=== PATIENT | male | born 1985 | race Two or more races ===

== ENCOUNTER 2024-07-02 14:00 | Outpatient (RCR) | payer MEDICAID, SELFPAY ==
--- NOTE | 2024-06-17 12:21 | PT.ODAYNRPT ---
PT Outpatient Daily Note OP Daily Note Outpatient Physical Therapy Treatment Date: 06/17/24 Visit Reasons: Left knee Osteoarthritis Subjective: L lateral knee still hurts but the inside of the thighs are less tight. Objective: See F/S for therex Assessment: Pt continues to ambulate with lateral trunk sway B and L lateral knee pain Plan: Continue per POC Length of Time (minutes) of Treatment: 30 Minutes Procedure Charges Therapeutic Exercise 30 minutes: Yes
--- NOTE | 2024-06-28 10:01 | PT.ODAYNRPT ---
PT Outpatient Daily Note OP Daily Note Outpatient Physical Therapy Treatment Date: 06/28/24 Visit Reasons: Left knee Osteoarthritis Subjective: Pt reports L knee is doing better. Objective: Please see flow sheet for ther ex list. 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 Plan: Continue with POC. Length of Time (minutes) of Treatment: 30 Minutes Procedure Charges Therapeutic Exercise 30 minutes: Yes
--- NOTE | 2024-07-02 14:23 | PT.ODAYNRPT ---
PT Outpatient Daily Note OP Daily Note Outpatient Physical Therapy Treatment Date: 07/02/24 Visit Reasons: Left knee Osteoarthritis Subjective: Pt reports knee is doing better but still has difficult bending and squatting. Objective: Please see flow sheet for ther ex list. Assessment: Pt instructed on lateral step down, pt requires WEIGHT LOSS PHYSICIAN to descend. Plan: Continue with pOC. Length of Time (minutes) of Treatment: 30 Minutes Procedure Charges Therapeutic Exercise 30 minutes: Yes
== END 2024-07-13 23:59 | disposition home or self-care (01) ==
LOC: CPTX 14:00
PROVIDERS: PCP Orthopaedic Surgery; Referring Provider Orthopaedic Surgery; Visit Provider Orthopaedic Surgery
DX: M25.562 Pain in left knee (principal); M23.92 Unspecified internal derangement of left knee; M17.12 Unilateral primary osteoarthritis, left knee; S83.242D Other tear of medial meniscus, current injury, left knee, subsequent encounter; X58.XXXD Exposure to other specified factors, subsequent encounter
CPT/HCPCS: 97110

== ENCOUNTER 2024-07-29 10:30 | Outpatient (RCR) | payer MEDICAID, SELFPAY ==
--- NOTE | 2024-07-16 12:14 | PT.ODAYNRPT ---
PT Outpatient Daily Note OP Daily Note Outpatient Physical Therapy Treatment Date: 07/16/24 Visit Reasons: left knee osteoarthritis Subjective: L lateral knee still hurts but the inside of the thighs are less tight. Objective: See F/S for therex Assessment: Pt continues to ambulate with lateral trunk sway B and L lateral knee pain Plan: Continue per POC Length of Time (minutes) of Treatment: 30 Minutes Procedure Charges Therapeutic Exercise 30 minutes: Yes
--- NOTE | 2024-07-22 13:20 | PT.ODAYNRPT ---
PT Outpatient Daily Note OP Daily Note Outpatient Physical Therapy Treatment Date: 07/22/24 Visit Reasons: left knee osteoarthritis Subjective: L lateral knee still hurts but the inside of the thighs are less tight. Objective: See F/S for therex Assessment: Pt continues to ambulate with lateral trunk sway B and L lateral knee pain. Plan: Continue per POC Length of Time (minutes) of Treatment: 30 Minutes Procedure Charges Therapeutic Exercise 30 minutes: Yes
--- NOTE | 2024-07-29 10:59 | PT.ODS1RPT ---
PT OP Progress/Discharge Note Date of Service: 07/29/24 Progress Note/DC Note Progress Note/Discharge Note: DC Note Patient Information Visit Reasons: left knee osteoarthritis Service Continue Service or Discharge: Discharge Discharge Date: 07/29/24 Status Subjective: L lateral knee still mildly hurts but the inside of the thighs are less tight. Objective: L knee ArOM: Flexion: 120 deg Ext: full TTP: min of lateral joint line Strength: Quads: 4+/5 HS: 4+/5 Gait: lateral sway with shortened step length Assessment: Pt has attended 18 visits with good progress with L knee goals. Pt has met goal of improved SLR to lift LE into bed x5 and improved quad and HS strength to 4+/5. Pt has decreased pain in L knee with bending it and squatting but continues to ambulate with lateral trunk sway B and B lateral knee pain. Progress has plateaued with goals. Plan: D/C with HEP Procedure Charges Therapeutic Exercise 30 minutes: Yes
== END 2024-08-13 23:59 | disposition home or self-care (01) ==
LOC: CPTX 10:30
PROVIDERS: PCP Orthopaedic Surgery; Referring Provider Orthopaedic Surgery; Visit Provider Orthopaedic Surgery
DX: M25.562 Pain in left knee (principal); S83.242D Other tear of medial meniscus, current injury, left knee, subsequent encounter; X58.XXXD Exposure to other specified factors, subsequent encounter; M17.12 Unilateral primary osteoarthritis, left knee; M23.92 Unspecified internal derangement of left knee
CPT/HCPCS: 97110

== ENCOUNTER → 2024-08-26 | Outpatient (CLI) | payer MEDICAID, SELFPAY ==
--- NOTE | 2024-08-26 10:49 | XR_ITS ---
Examination: Right femur 2 views Technique one AP lateral right femur 2 views Exam date and time: August 26, 2024 1226 hours INDICATIONS: Right femur pain 6 months. FINDINGS: Advanced avascular necrosis involving right femoral head occupying more than 50% of the articulating surface Fragmentation flattening the femoral head No acute fracture Shaft of the femur intact IMPRESSION: Advanced avascular necrosis right femoral head
== END | disposition home or self-care (01) ==
PROVIDERS: PCP Nurse Practitioner Family; Referring Provider Orthopaedic Surgery; Visit Provider Orthopaedic Surgery
DX: M87.851 Other osteonecrosis, right femur (principal)
CPT/HCPCS: 73552

== ENCOUNTER → 2024-11-04 | Outpatient (CLI) | payer MEDICAID, SELFPAY ==
--- NOTE | 2024-11-04 | XR_ITS ---
Examination:Right hip AP, lateral, AP pelvis 3 views Technique: Hip AP lateral, AP pelvis, 3 views Exam date and time:November 04, 2024 1110 hours INDICATIONS: Right hip pain years getting worse FINDINGS: Prominent osteopenia Bilateral moderate to advanced hip osteoarthritis Bilateral advanced avascular necrosis femoral heads No fracture IMPRESSION: Bilateral moderate to advanced hip osteoarthritis Bilateral advanced avascular necrosis femoral heads.
--- NOTE | 2024-11-04 | XR_ITS ---
Examination: Knee, right , 3 views Technique: Knee AP, lateral, oblique 3 views Date and time of exam: November 04, 2024 1109 hours INDICATIONS: Right knee pain several years getting worse FINDINGS: No fracture or dislocation Mild narrowing medial joint space Mild to moderate osteoarthritis patellofemoral joint Small knee effusion IMPRESSION: Mild narrowing medial joint space Mild to moderate osteoarthritis patellofemoral joint
== END | disposition home or self-care (01) ==
LOC: CDIM 10:41
PROVIDERS: Referring Provider Registered Nurse Community Health; Visit Provider Registered Nurse Community Health
DX: M17.11 Unilateral primary osteoarthritis, right knee (principal); M25.861 Other specified joint disorders, right knee; M16.11 Unilateral primary osteoarthritis, right hip; M87.851 Other osteonecrosis, right femur
CPT/HCPCS: 73502; 73562

== ENCOUNTER 2025-01-30 13:13 | Outpatient (AMB) | payer MEDICAID, SELFPAY ==
--- NOTE | 2025-01-30 13:34 | ORTHONT_ITS ---
Vital signs 01/30/25 13:58 Height 1.73 m Height Method Stated Weight 103.051 kg Weight Measurement Method Standing Scale BMI 34.5 BP 139/90 H Blood Pressure Source Automatic Cuff Blood Pressure Location Right Upper Arm Position Sitting Respiration 18 Pulse 118 H Pulse Source Monitor Temp 97.1 F Temp Source Temporal Artery Scan Pulse Oximetry (%) 95 Oxygen Delivery Method Room Air Med/Allergies Allergies & Medications Allergies No Known Allergies Allergy (Verified 01/30/25 13:58) Medication Reconciliation No Known Home Medications 01/30/25 [History Confirmed 01/30/25] Exam Exam Patient is in no acute distress and is cooperative with the examination today. Breathing is nonlabored. In no respiratory distress. Patient has no paraspinal tenderness. Spinal deformity cannot be appreciated. The gait of the patient is nonantalgic Bilateral extremities were evaluated and demonstrates sensation intact to light touch. Palpable pedal pulses are present. No significant edema is present. Bilateral knees were examined and the patient has full strength and range of motion.. The left hip was examined. Patient was able to flex to 90 degrees, adduct to 30 degrees, abduct to 40 degrees, internally rotate to 20 degrees, and externally rotate to 20 degrees. Patient has a negative logroll. Stinchfield is Positive. The patient is nontender diffusely to touch. The right hip was examined. Patient was able to flex to 90 degrees, adduct to 30 degrees, abduct to 40 degrees, internally rotate to 10 degrees, and externally rotate to 20 degrees. Patient has a Positive logroll. Bilateral hip films demonstrates significant knees previously of both femoral heads. There is marked sclerosis and erosive changes of the femoral head consistent with avascular necrosis. 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 We discussed different treatment options with patient including continued anti- inflammatories, home exercises, physical therapy. He has significant collapse of the femoral consider total hip replacement as a reasonable option. We discussed that he is on the younger side for total hip replacement and is possible that he will outlive it. He would do this through an anterior approach The nature and purpose of the total hip replacement, alternative method(s) of treatment, the material risks involved, and the possibility of complications were fully explained to the patient. The patient does NOT have any of the following contraindications to JOSH: - Active infection of the hip joint, OR - Active systemic bacteremia, OR - Active skin infection or open wound at surgical site, OR - Neuropathic arthritis, OR - Severe, rapidly progressive neurological disease, OR - Severe medical condition that makes risks of the surgery outweigh the potential benefit The patient was told the most common risks and complications associated with a total hip replacement include, but are not limited to: blood clots in the leg, fatal pulmonary embolism, dislocation of the prosthesis, intraoperative and postoperative fractures of the femur or acetabulum, infection, failure of the prosthesis or grafting materials, complications from anesthesia, reactions to blood transfusions, postoperative leg length inequality, instability of the hip replacement, nerve damage or injury, vascular injury, delayed wound healing, infection, other injury or even . In addition, there are risks associated with anesthesia given during this operation. Also, the patient was told that after undergoing a total hip replacement there may still be persistent pain or disability. The patient was informed that the success of this operation in part depends upon the mechanical devices which are going to be implanted and that these devices can fail or malfunction, and may need to be repaired or replaced and there are no guarantees as to the longevity of this device or its parts and that it or its parts could fail prematurely. The patient was also notified that during the course of surgery, there may be a need to use bone graft from donors, and that any bone graft used will be carefully screened for communicable diseases, including AIDS, hepatitis, Tom-Creutzfeldt, or other diseases, but despite the screening procedures, there is a small chance that they could contract one of these diseases. Finally, the patient was asked to follow completely and fully with all advice and recommended treatments, and that recovery and ultimate outcome are affected by their compliance with recommended treatment. We discussed the risks, benefits and treatment alternatives, and the patient is interested in proceeding with surgery. We will try to set this up as expeditiously as possible. Office Procedures GNS Level of Care Nursing/Assessment Patient Status: Established Patient Nursing Assessment/Reassesment: Medication Reconciliation, Update PMH in EMR and Vital Signs Coordination of Care: Complex Care and Chronic Disease 1-5, Education Complex Pt/Fam, Consent,records obtained, informed consent, 2-3 Insurance Autorizations needed, Lab and Imaging orders, Results/Orders obtained and Staff clarify orders Special Needs: Language special needs Established Patient Charge Established Patient Point Assignment: 130 Established Patient Point Charge: EP Level 4 (120-155) MA Intake Visit Data Collection New Patient or Established: Established Patient (seen at [facility] within 3 years) Reason for Visit:: HIP PAIN Seen by Clinical Staff ONLY (RN/MA): No Verbal consent obtained for Telemed visit?: No International Controller Required: Yes PCP or OBGYN visit in last 3 months: Yes Hx Now: No Do You Feel Safe at Home: Yes Authorities Contacted: N/A Questionairres Past Medical History Past Medical History Have you ever been diagnosed with any of the following: Cardiology Problems Congestive Heart Failure: No Respiratory Problems Chronic Obstructive Pulmonary Disease (COPD): No Asthma: No Genital/Urinary Problems Renal Disease: No Endocrine Problems Diabetes Mellitus Type 1: No Diabetes Mellitus Type 2: No Blood Problems Sickle Cell Disease: No Subjective Visit Visit for: new patient and hip Immunization / Flu Flu Vaccine in the Last 12 Months: No Flu Vaccine Exclusion Criteria: No Exclusion Criteria History of Present Illness Chief complaint: right hip pain Patient is a 39yo male with R>L hip avascular necrosis and right hip pain. He does not drink alcohol. He reports he has been having right hip pain for the last 1 year and it has progressed. The pain is affecting his quality life and happiness. He has tried anti-inflammatories previously. He did have a hospitalization for COVID where he was on intravenous steroids for quite a bit of time. This is the only predisposing fracture to avascular necrosis that I can get my history. He does have avascular necrosis of both hips Personal History Occupation: [employer] PMH: BMI and other (specify) (COVID, PNEUMONIA) BMI Counceling provided: Yes Pain Pain level (0-10): 6 Pain duration: ALL DAY Pain location: groin Pain quality: sharp, dull and aching Pain timing: night, increases with activity and stairs Associated signs & symptoms: numbness and stiffness Ambulatory data Ambulatory device: none Treatments Improvement with previous injections: No Improvement with PT: No Improvement with NSAIDS: no Review of Systems Review of Systems: All systems negative unless otherwise noted in HPI.
[2025-01-30 13:58] VITALS: BP 139/90; PULSE 118; RESP 18; TEMP 36.2; O2SAT 95; BMI 34.5
== END 2025-01-30 13:41 | disposition home or self-care (01) ==
LOC: HODSRG 13:13
PROVIDERS: Supervising Provider Orthopaedic Surgery Adult Reconstructive Orthopaedic Surgery; Visit Provider Orthopaedic Surgery Adult Reconstructive Orthopaedic Surgery
DX: M87.88 Other osteonecrosis, other site (principal); M25.551 Pain in right hip; Z86.16 Personal history of COVID-19
CPT/HCPCS: 99214; G0463

== ENCOUNTER 2025-03-04 11:00 | Outpatient (AMB) | payer MEDICAID, SELFPAY ==
[2025-03-04 11:21] VITALS: BP 137/95; PULSE 84; RESP 19; TEMP 36.3; O2SAT 94; BMI 33.4
--- NOTE | 2025-03-04 11:21 | PD.ORTHCLVIS ---
Vital signs 03/04/25 11:21 Height 1.73 m Height Method Measured Weight 100.045 kg Weight Measurement Method Standing Scale BMI 33.4 BP 137/95 H Blood Pressure Source Automatic Cuff Blood Pressure Location Left Upper Arm Position Sitting Respiration 19 Pulse 84 Pulse Source Monitor Temp 97.4 F Temp Source Temporal Artery Scan Pulse Oximetry (%) 94 L Oxygen Delivery Method Room Air Med/Allergies Allergies & Medications Allergies No Known Allergies Allergy (Verified 03/04/25 11:23) Medication Reconciliation No Known Home Medications 01/30/25 [History Confirmed 03/04/25] Exam Exam Patient is in no acute distress and is cooperative with the examination today. Breathing is nonlabored. In no respiratory distress. Patient has no paraspinal tenderness. Spinal deformity cannot be appreciated. The gait of the patient is nonantalgic Bilateral extremities were evaluated and demonstrates sensation intact to light touch. Palpable pedal pulses are present. No significant edema is present. Bilateral knees were examined and the patient has full strength and range of motion.. The left hip was examined. Patient was able to flex to 90 degrees, adduct to 30 degrees, abduct to 40 degrees, internally rotate to 20 degrees, and externally rotate to 20 degrees. Patient has a negative logroll. Stinchfield is Positive. The patient is nontender diffusely to touch. The right hip was examined. Patient was able to flex to 90 degrees, adduct to 30 degrees, abduct to 40 degrees, internally rotate to 10 degrees, and externally rotate to 20 degrees. Patient has a Positive logroll. Bilateral hip films demonstrates marked sclerosis and erosive changes of the bilateral femoral headd consistent with avascular necrosis. 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 We discussed different treatment options with patient including continued anti-inflammatories, home exercises, physical therapy. He has significant collapse of the femoral consider total hip replacement as a reasonable option. We discussed that he is on the younger side for total hip replacement and is possible that he will outlive it. The nature and purpose of the total hip replacement, alternative method(s) of treatment, the material risks involved, and the possibility of complications were fully explained to the patient. The patient does NOT have any of the following contraindications to JOSH: - Active infection of the hip joint, OR - Active systemic bacteremia, OR - Active skin infection or open wound at surgical site, OR - Neuropathic arthritis, OR - Severe, rapidly progressive neurological disease, OR - Severe medical condition that makes risks of the surgery outweigh the potential benefit The patient was told the most common risks and complications associated with a total hip replacement include, but are not limited to: blood clots in the leg, fatal pulmonary embolism, dislocation of the prosthesis, intraoperative and postoperative fractures of the femur or acetabulum, infection, failure of the prosthesis or grafting materials, complications from anesthesia, reactions to blood transfusions, postoperative leg length inequality, instability of the hip replacement, nerve damage or injury, vascular injury, delayed wound healing, infection, other injury or even . In addition, there are risks associated with anesthesia given during this operation. Also, the patient was told that after undergoing a total hip replacement there may still be persistent pain or disability. The patient was informed that the success of this operation in part depends upon the mechanical devices which are going to be implanted and that these devices can fail or malfunction, and may need to be repaired or replaced and there are no guarantees as to the longevity of this device or its parts and that it or its parts could fail prematurely. The patient was also notified that during the course of surgery, there may be a need to use bone graft from donors, and that any bone graft used will be carefully screened for communicable diseases, including AIDS, hepatitis, Tom-Creutzfeldt, or other diseases, but despite the screening procedures, there is a small chance that they could contract one of these diseases. Finally, the patient was asked to follow completely and fully with all advice and recommended treatments, and that recovery and ultimate outcome are affected by their compliance with recommended treatment. We discussed the risks, benefits and treatment alternatives, and the patient is interested in proceeding with surgery. We will try to set this up as expeditiously as possible. Office Procedures GNS Level of Care Nursing/Assessment Patient Status: Established Patient Nursing Assessment/Reassesment: Medication Reconciliation, Update PMH in EMR and Vital Signs Coordination of Care: Complex Care and Chronic Disease 1-5, Education Complex Pt/Fam, Consent,records obtained, informed consent, Results/Orders obtained and Staff clarify orders Special Needs: Language special needs Established Patient Charge Established Patient Point Assignment: 95 Established Patient Point Charge: EP Level 3 (80-115) JONAS Intake Visit Data Collection New Patient or Established: Established Patient (seen at [facility] within 3 years) Reason for Visit:: PRE-OP RIGHT JOSH Seen by Clinical Staff ONLY (RN/MA): No Odd Job Worker Required: No PCP or OBGYN visit in last 3 months: Yes Hx Now: No Do You Feel Safe at Home: Yes Authorities Contacted: N/A Questionairres Past Medical History Past Medical History Have you ever been diagnosed with any of the following: Cardiology Problems Congestive Heart Failure: No Respiratory Problems Chronic Obstructive Pulmonary Disease (COPD): No Asthma: No Genital/Urinary Problems Renal Disease: No Endocrine Problems Diabetes Mellitus Type 1: No Diabetes Mellitus Type 2: No Blood Problems Sickle Cell Disease: No Subjective Visit Visit for: new patient, follow up visit, hip and knee Immunization / Flu Flu Vaccine in the Last 12 Months: No Flu Vaccine Exclusion Criteria: No Exclusion Criteria History of Present Illness Chief complaint: PRE OP RIGHT JOSH Patient is a 39yo male with R>L hip avascular necrosis and right hip pain. He does not drink alcohol. He reports he has been having right hip pain for the last 1 year and it has progressed. The pain is affecting his quality life and happiness. He has tried anti-inflammatories previously. He did have a hospitalization for COVID where he was on intravenous steroids for quite a bit of time. This is the only predisposing fracture to avascular necrosis that I can get my history. He does have avascular necrosis of both hips Personal History Occupation: [employer] PMH: BMI and other (specify) (COVID, PNEUMONIA) BMI Counceling provided: Yes Pain Pain level (0-10): 8 Pain duration: ALL DAY Pain location: groin Pain quality: sharp, dull and aching Pain timing: night, increases with activity and stairs Associated signs & symptoms: numbness and stiffness Ambulatory data Ambulatory device: walker (PT ALREADY HAS WALKER AT HOME) and none Treatments Improvement with previous injections: No Improvement with PT: No Improvement with NSAIDS: no Review of Systems Review of Systems: All systems negative unless otherwise noted in HPI.
== END 2025-03-04 11:34 | disposition home or self-care (01) ==
LOC: HODSRG 11:00
PROVIDERS: Supervising Provider Orthopaedic Surgery Adult Reconstructive Orthopaedic Surgery; Visit Provider Orthopaedic Surgery Adult Reconstructive Orthopaedic Surgery
DX: M87.88 Other osteonecrosis, other site (principal); M25.551 Pain in right hip; Z86.16 Personal history of COVID-19
CPT/HCPCS: 99213; G0463

== ENCOUNTER → 2025-03-10 | Outpatient (CLI) | payer MEDICAID, SELFPAY ==
--- NOTE | 2025-03-10 12:00 | XR_ITS ---
Examination: CT bilateral lower extremities, without contrast. 2-D sagittal reconstructions. 2-D coronal reconstructions. 3-D reconstructions. Date and time of exam:March 10, 2025, 12:15 PM INDICATIONS: Diagnosis hepatic septal necrosis right femur, right hip pain 2 years CTDI: vol (mGy):10.8 DLP: (mGycm):724 Technique: Multiple 1.25 mm axial sections of the bilateral lower extremities without intravenous contrast have been obtained. 2-D sagittal and coronal reconstructions have been obtained. 3-D reconstructions have been obtained. Low dose protocols were performed. One or more of the following dose reduction techniques were used; automated exposure control, adjustment of the mA and/or KV according to patient size, use of iterative reconstruction technique. Findings: Severe osteopenia Advanced bilateral hip osteoarthritis Advanced right hip avascular necrosis Extensive subarticular cyst formation left femoral head Mild narrowing medial joint spaces knees No fractures or dislocations IMPRESSION: Advanced bilateral hip osteoarthritis Advanced right hip avascular necrosis
== END | disposition home or self-care (01) ==
LOC: CCTX 11:54
PROVIDERS: Referring Provider Orthopaedic Surgery Adult Reconstructive Orthopaedic Surgery; Visit Provider Orthopaedic Surgery Adult Reconstructive Orthopaedic Surgery
DX: M16.0 Bilateral primary osteoarthritis of hip (principal); M87.88 Other osteonecrosis, other site
CPT/HCPCS: 72192; 73700

== ENCOUNTER → 2025-03-19 | Day surgery (SDC) | payer MEDICAID, SELFPAY ==
[2025-03-14 06:59] VITALS: BMI 33.1
[2025-03-14 08:59] LABS: Basophils # (Auto) 0.0 Thou/mm3 (0.0-0.2); Basophils % (Auto) 1 % (0-2.5); Eosinophils # (Auto) 0.2 Thou/mm3 (0.0-0.5); Eosinophils % (Auto) 3 % (0-10); Hematocrit 44.6 % (41.0-53.0); Hemoglobin 14.2 g/dL (13.5-16.0); Immature Granulocytes Auto 0.02 Thou/mm3 (0.00-0.00); Lymphocytes # (Auto) 2.3 Thou/mm3 (1.0-4.8); Lymphocytes % (Auto) 33 % (10-50); Mean Corpuscular HGB Conc 31.8 g/dl (31.0-37.0); Mean Corpuscular Hemoglobin 27.7 pg (25.0-35.0); Mean Corpuscular Volume 87 fL (80-100); Monocytes # (Auto) 0.8 Thou/mm3 (0.0-0.8); Monocytes % (Auto) 11 % (0-12); Neutrophils # (Auto) 3.6 Thou/mm3 (1.8-7.7); Neutrophils % (Auto) 52 % (37-80); Nucleated Red Blood Cell # 0.00 Thou/mm3 (0.00-0.00); Nucleated Red Blood Cell % 0 /100 WBC (0); Platelet Count 321 Thou/mm3 (140-440); RDW Standard Deviation 46.5 fL (35.1-43.9); Red Blood Count 5.12 Miln/mm3 (4.50-5.90); White Blood Count 7.0 Thou/mm3 (3.8-10.6)
[2025-03-14 09:03] LABS: Alanine Aminotransferase 67 U/L (10-49); Albumin, Serum 4.6 gm/dL (3.5-5.0); Albumin/Globulin Ratio 1.8 (1.2-2.2); Alkaline Phosphatase 76 U/L (46-116); Anion Gap 10 (7-16); Aspartate Amino Transferase 23 U/L (0-34); BUN/Creatinine Ratio 18 Ratio (12-20); Bilirubin,Total 0.4 mg/dL (0.3-1.2); Blood Urea Nitrogen 16 mg/dL (9-23); Calcium 9.0 mg/dL (8.3-10.6); Calcium (Corrected) 9.0 mg/dL (8.5-10.1); Carbon Dioxide 27.5 mMol/L (20.0-31.0); Chloride 107 mMol/L (98-107); Creatinine (Component) 0.9 mg/dL (0.6-1.3); Estimated Creatinine Clearance 123.2 mL/min (>60); Globulin 2.5 gm/dL (2.3-3.5); Glucose 85 mg/dL (74-106); Osmolality,Calculated 287 (275-295); Potassium 4.3 mMol/L (3.4-5.1); Sodium 144 mMol/L (136-145); Total Protein 7.1 gm/dL (5.7-8.2); eGFR > 60 See Note
[2025-03-14 09:07] LABS: INR 1.0 (0.9-1.3); Partial Thromboplastin Time 27.1 Seconds (22.0-36.0); Prothrombin Time 11.3 Seconds (9.0-12.2)
[2025-03-19] MEDS: RINGERS LACTATED 1000 ML 1,000 ML 20 ML IV (06:50)
[2025-03-19] MEDS: ACETAMINOPHEN 325 MG TABLET 650 MG PO (06:51)
[2025-03-19] MEDS: MELOXICAM 7.5 MG TABLET PO (06:51)
[2025-03-19] MEDS: PREGABALIN 75 MG CAPSULE PO (06:51)
[2025-03-19 06:55] VITALS: BP 141/74; PULSE 77; RESP 17; TEMP 37; O2SAT 96; BMI 32.3
--- NOTE | 2025-03-19 07:15 | CHAP ---
Visited briefly with patient giving encouragement and prayer.
== END | disposition home or self-care (01) ==
LOC: S2EX 06:12
PROVIDERS: Anesthesiology; PCP Family Medicine; Referring Provider Orthopaedic Surgery Adult Reconstructive Orthopaedic Surgery; Visit Provider Orthopaedic Surgery Adult Reconstructive Orthopaedic Surgery
PROC: (CPT 27130; principal; 2025-03-19 17:00)
DX: M87.051 Idiopathic aseptic necrosis of right femur (principal); M87.052 Idiopathic aseptic necrosis of left femur; Z53.09 Procedure and treatment not carried out because of other contraindication
CPT/HCPCS: 36415; 80053; 85025; 85610; 85730; J2250; J2704; J3010; J3490; J7120; A9270

== ENCOUNTER 2025-04-03 11:05 | Outpatient (AMB) | payer MEDICAID, SELFPAY ==
--- NOTE | 2025-04-03 11:17 | ORTHONT_ITS ---
Vital signs 04/03/25 11:18 Height 1.73 m Height Method Measured Weight 97.097 kg Weight Measurement Method Standing Scale BMI 32.4 BP 130/88 H Blood Pressure Source Automatic Cuff Blood Pressure Location Left Upper Arm Position Sitting Respiration 18 Pulse 97 Pulse Source Monitor Temp 96.6 F L Temp Source Temporal Artery Scan Pulse Oximetry (%) 94 L Oxygen Delivery Method Room Air Med/Allergies Allergies & Medications Allergies No Known Allergies Allergy (Verified 04/03/25 11:19) Medication Reconciliation metformin 500 mg tablet 500 mg PO BID 03/14/25 [History Confirmed 04/03/25] Exam Exam Patient is in no acute distress and is cooperative with the examination today. Breathing is nonlabored. In no respiratory distress. Patient has no paraspinal tenderness. Spinal deformity cannot be appreciated. The gait of the patient is nonantalgic Bilateral extremities were evaluated and demonstrates sensation intact to light touch. Palpable pedal pulses are present. No significant edema is present. Bilateral knees were examined and the patient has full strength and range of motion.. The left hip was examined. Patient was able to flex to 90 degrees, adduct to 30 degrees, abduct to 40 degrees, internally rotate to 20 degrees, and externally rotate to 20 degrees. Patient has a negative logroll. Stinchfield is Positive. The patient is nontender diffusely to touch. The right hip was examined. Patient was able to flex to 90 degrees, adduct to 30 degrees, abduct to 40 degrees, internally rotate to 10 degrees, and externally rotate to 20 degrees. Patient has a Positive logroll. Skin is clean dry and intact Bilateral hip films demonstrates marked sclerosis and erosive changes of the bilateral femoral headd consistent with avascular necrosis. 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 We discussed different treatment options with patient including continued anti- inflammatories, home exercises, physical therapy. He has significant collapse of the femoral consider total hip replacement as a reasonable option. We discussed that he is on the younger side for total hip replacement and is possible that he will outlive it. The nature and purpose of the total hip replacement, alternative method(s) of treatment, the material risks involved, and the possibility of complications were fully explained to the patient. The patient does NOT have any of the following contraindications to JOSH: - Active infection of the hip joint, OR - Active systemic bacteremia, OR - Active skin infection or open wound at surgical site, OR - Neuropathic arthritis, OR - Severe, rapidly progressive neurological disease, OR - Severe medical condition that makes risks of the surgery outweigh the potential benefit The patient was told the most common risks and complications associated with a total hip replacement include, but are not limited to: blood clots in the leg, fatal pulmonary embolism, dislocation of the prosthesis, intraoperative and postoperative fractures of the femur or acetabulum, infection, failure of the prosthesis or grafting materials, complications from anesthesia, reactions to blood transfusions, postoperative leg length inequality, instability of the hip replacement, nerve damage or injury, vascular injury, delayed wound healing, infection, other injury or even . In addition, there are risks associated with anesthesia given during this operation. Also, the patient was told that after undergoing a total hip replacement there may still be persistent pain or disability. The patient was informed that the success of this operation in part depends upon the mechanical devices which are going to be implanted and that these devices can fail or malfunction, and may need to be repaired or replaced and there are no guarantees as to the longevity of this device or its parts and that it or its parts could fail prematurely. The patient was also notified that during the course of surgery, there may be a need to use bone graft from donors, and that any bone graft used will be carefully screened for communicable diseases, including AIDS, hepatitis, Tom-Creutzfeldt, or other diseases, but despite the screening procedures, there is a small chance that they could contract one of these diseases. Finally, the patient was asked to follow completely and fully with all advice and recommended treatments, and that recovery and ultimate outcome are affected by their compliance with recommended treatment. We discussed the risks, benefits and treatment alternatives, and the patient is interested in proceeding with surgery. We will try to set this up as expeditiously as possible. Office Procedures GNS Level of Care Nursing/Assessment Patient Status: Established Patient Nursing Assessment/Reassesment: Medication Reconciliation, Orthostatic Vitals, Update PMH in EMR and Vital Signs Coordination of Care: Complex Care and Chronic Disease 1-5, Education Complex Pt/Fam, Consent,records obtained, informed consent, Lab and Imaging orders, Results/Orders obtained and Staff clarify orders Special Needs: Language special needs Established Patient Charge Established Patient Point Assignment: 120 Established Patient Point Charge: EP Level 4 (120-155) MA Intake Visit Data Collection New Patient or Established: Established Patient (seen at [facility] within 3 years) Reason for Visit:: F/U RING WORM Seen by Clinical Staff ONLY (RN/MA): No Psychological Examiner Required: Yes PCP or OBGYN visit in last 3 months: Yes Hx Now: No Do You Feel Safe at Home: Yes Authorities Contacted: N/A Questionairres Past Medical History Past Medical History Have you ever been diagnosed with any of the following: Neurological Problems Seizures: No Cardiology Problems Congestive Heart Failure: No Respiratory Problems Chronic Obstructive Pulmonary Disease (COPD): No Asthma: No Pneumonia: Yes (Covid) Stomache/Intestinal Problems Hepatitis: No Obesity: Yes Genital/Urinary Problems Renal Disease: No Musculoskeletal Problems Arthritis: No Head,Eye,Nose,Throat Problems Glaucoma: Yes (right) Endocrine Problems Diabetes Mellitus Type 1: No Diabetes Mellitus Type 2: No Blood Problems Sickle Cell Disease: No Other Problems Hospitalization: Yes (Covid, surgery) Shingles: No Blood Transfusions: No Blood Transfusion Reaction: No Anesthesia Reactions: No Chicken Pox: Yes Measles: Yes Cancer: No Subjective Visit Visit for: follow up visit and hip Immunization / Flu Flu Vaccine in the Last 12 Months: No Flu Vaccine Exclusion Criteria: No Exclusion Criteria History of Present Illness Chief complaint: F/U RING WORM Patient is a 39yo male with R>L hip avascular necrosis and right hip pain. He does not drink alcohol. He reports he has been having right hip pain for the last 1 year and it has progressed. The pain is affecting his quality life and h appiness. He has tried anti-inflammatories previously. He did have a hospitalization for COVID where he was on intravenous steroids for quite a bit of time. This is the only predisposing fracture to avascular necrosis that I can get my history. He does have avascular necrosis of both hips His prior surgery was canceled for a week. This is resolved and I did inspect both legs and there is no erythema or lesions noted Personal History Occupation: [employer] PMH: BMI and other (specify) (COVID, PNEUMONIA) BMI Counceling provided: Yes Pain Pain level (0-10): 8 Pain duration: ALL DAY Pain location: groin Pain quality: sharp, dull and aching Pain timing: night, increases with activity and stairs Associated signs & symptoms: numbness and stiffness Ambulatory data Ambulatory device: none Treatments Improvement with previous injections: No Improvement with PT: No Improvement with NSAIDS: no Review of Systems Review of Systems: All systems negative unless otherwise noted in HPI.
[2025-04-03 11:18] VITALS: BP 130/88; PULSE 97; RESP 18; TEMP 35.9; O2SAT 94; BMI 32.4
== END 2025-04-03 11:29 | disposition home or self-care (01) ==
PROVIDERS: Supervising Provider Orthopaedic Surgery Adult Reconstructive Orthopaedic Surgery; Visit Provider Orthopaedic Surgery Adult Reconstructive Orthopaedic Surgery
DX: M87.88 Other osteonecrosis, other site (principal); M25.551 Pain in right hip; Z86.16 Personal history of COVID-19; E66.9 Obesity, unspecified; Z71.3 Dietary counseling and surveillance; Z68.32 Body mass index [BMI] 32.0-32.9, adult
CPT/HCPCS: 99214; G0463

== ENCOUNTER 2025-04-23 05:45 | Day surgery (SDC) | payer MEDICAID, SELFPAY ==
[2025-04-22 06:58] VITALS: BMI 34.7
[2025-04-22 08:58] LABS: Basophils # (Auto) 0.0 Thou/mm3 (0.0-0.2); Basophils % (Auto) 0 % (0-2.5); Eosinophils # (Auto) 0.3 Thou/mm3 (0.0-0.5); Eosinophils % (Auto) 3 % (0-10); Hematocrit 45.2 % (41.0-53.0); Hemoglobin 14.6 g/dL (13.5-16.0); Immature Granulocytes Auto 0.02 Thou/mm3 (0.00-0.00); Lymphocytes # (Auto) 1.9 Thou/mm3 (1.0-4.8); Lymphocytes % (Auto) 23 % (10-50); Mean Corpuscular HGB Conc 32.3 g/dl (31.0-37.0); Mean Corpuscular Hemoglobin 28.2 pg (25.0-35.0); Mean Corpuscular Volume 87 fL (80-100); Monocytes # (Auto) 0.8 Thou/mm3 (0.0-0.8); Monocytes % (Auto) 10 % (0-12); Neutrophils # (Auto) 5.3 Thou/mm3 (1.8-7.7); Neutrophils % (Auto) 64 % (37-80); Nucleated Red Blood Cell # 0.00 Thou/mm3 (0.00-0.00); Nucleated Red Blood Cell % 0 /100 WBC (0); Platelet Count 367 Thou/mm3 (140-440); RDW Standard Deviation 45.3 fL (35.1-43.9); Red Blood Count 5.17 Miln/mm3 (4.50-5.90); White Blood Count 8.3 Thou/mm3 (3.8-10.6)
[2025-04-22 09:16] LABS: INR 1.0 (0.9-1.3); Partial Thromboplastin Time 26.8 Seconds (22.0-36.0); Prothrombin Time 11.3 Seconds (9.0-12.2)
[2025-04-22 09:26] LABS: Alanine Aminotransferase 70 U/L (10-49); Albumin, Serum 4.6 gm/dL (3.5-5.0); Albumin/Globulin Ratio 1.8 (1.2-2.2); Alkaline Phosphatase 82 U/L (46-116); Anion Gap 14 (7-16); Aspartate Amino Transferase 29 U/L (0-34); BUN/Creatinine Ratio 12 Ratio (12-20); Bilirubin,Total 0.5 mg/dL (0.3-1.2); Blood Urea Nitrogen 11 mg/dL (9-23); Calcium 9.6 mg/dL (8.3-10.6); Calcium (Corrected) 9.6 mg/dL (8.5-10.1); Carbon Dioxide 25.4 mMol/L (20.0-31.0); Chloride 104 mMol/L (98-107); Creatinine (Component) 0.9 mg/dL (0.6-1.3); Estimated Creatinine Clearance 118.0 mL/min (>60); Globulin 2.6 gm/dL (2.3-3.5); Glucose 91 mg/dL (74-106); Osmolality,Calculated 284 (275-295); Potassium 3.8 mMol/L (3.4-5.1); Sodium 143 mMol/L (136-145); Total Protein 7.2 gm/dL (5.7-8.2); eGFR > 60 See Note
[2025-04-23] VITALS (16 sets, daily range): BP systolic 104–136; BP diastolic 67–88; PULSE 67–82; RESP 13–20; TEMP 36.2–36.8; O2SAT 95–98; BMI 34.7
[2025-04-23] MEDS: ACETAMINOPHEN 325 MG TABLET 650 MG PO (06:57)
[2025-04-23] MEDS: PREGABALIN 75 MG CAPSULE PO (06:57)
[2025-04-23] MEDS: MELOXICAM 7.5 MG TABLET PO (06:58)
[2025-04-23] MEDS: RINGERS LACTATED 1000 ML 1,000 ML 20 ML IV (06:59)
--- NOTE | 2025-04-23 07:24 | XR_ITS ---
Examination: Right hip AP 2 views Fluoroscopy Date and time: April single view thousand 25 0915 hours INDICATIONS: Right hip arthroplasty today. TECHNIQUE AND FINDINGS: 2 AP spot films right hip Total right hip arthroplasty. Satisfactory alignment. Fluoroscopy 13 seconds radiation dose 1.41 milligray IMPRESSION: Total right hip arthroplasty with satisfactory alignment
--- NOTE | 2025-04-23 07:25 | CHAP ---
Gave patient words of comfort and prayer.
--- NOTE | 2025-04-23 10:04 | ESOP_ITS ---
Date of Procedure 04/23/25 Pre Op Diagnosis right hip avascular necrosis Post Op Diagnosis right hip avascular necrosis Procedure right total hip replacement meghan anterior Findings full thickness cartilage loss and subchondral fracture Procedure Description Indications: The patient is a 39 y.o. year-old male with a long standing history of right hip pain and avascular necrosis. After considering the patient's condition and the impact of their hip on the patient's quality of life and activities of daily living, total hip replacement was offered as a reasonable option. Prior to the surgery I discussed the nature of the total hip replacement surgery including alternatives to surgery and the purpose of, and indications for proceeding with surgery. I discussed that this is an elective operation and that the patient should carefully weigh their options before proceeding with surgery. I discussed that this surgery is a shared decision between the patient and the surgeon. Risks and benefits and alternatives of the procedure have been explained to the patient and their family. Anesthesia complications and risks include but are not limited to stroke, heart attack, and . The surgical risks include but are not limited to infection, instability/dislocation, bleeding, nerve and blood vessel injury, deep vein thrombosis, pulmonary embolus, stiffness, pain, scar, need for reoperation, leg length discrepancy, thigh numbness, weakness, and mechanical failure of the implant including loosening, metal complications, metal allergy, wear or breakage. I discussed the expected recovery from surgery and the importance of compliance with all our pre and post-operative recommendations in order to maximize the recovery. The patient understands the risks of loss of life, loss of limb and, loss of function and wishes to proceed. A signed and witnessed consent was obtained and placed in the chart. Procedure in Detail: The patient was identified in the preoperative area. A signed and witness consent was confirmed in the chart. The surgery team confirmed with the patient the operative plan and surgical site. The surgical site was confirmed by the patient and marked by the surgical team. The patient was given the opportunity to ask any further questions and all questions were answered. The patient was brought to the operating room where anesthesia was induced by the anesthesia team without incident. The patient was placed in the supine position on a HANA table with the feet well padded in the boots. All extremities were padded to ensure adequate protection. A timeout was performed prior to the procedure which verified the correct patient, positioning, operation to be performed, operative site, antibiotics, allergies, imaging, and any other concerns. All parties were in agreement. The operative site was cleaned and draped in the usual sterile fashion. A final timeout was performed with all parties in agreement. We first started by making a small incision superior to the ASIS ensuring to be on the table of the pelvis. We ensured that we were 2 fingerbreadths above the ASIS and hip. We placed 3 pins through a small incision and ensured that we were in the table. The pins were driven approximately 3 to 4 cm. The arrays were then placed on the contralateral side to face the camera. A anterior approach to the hip was utilized for the operative side. A 11cm skin incision was made just distal and lateral to the ASIS. This was taken down through skin and subcutaneous tissue using a 10 blade. Bleeding was controlled using electrocautery. The fascia was identified and split in line with the its fibers. The plane medial to the TFL was developed. Next the lateral femoral circumflex vessel was cauterized. The capsule over the femoral neck was exposed and a T shaped capsulotomy performed. The two leaflets were tagged. A femoral neck osteotomy was then performed and the head removed using the marker tool to aid in determining the appropriate neck length. The acetabular bone was then mapped.Acetabular retractors were placed and the cupped was reamed using the robot for alignment. We reamed line to line and good bleeding bone was obtained. We then placed a press fit triathlon cup getting proper version and inclination off of c-arm imaging. There was good press fit. The anterior rim of the cup well covered. One placed and confirmed below the rim of the inner cup followed by the liner which was confirmed fully seated circumferentially. Half of the joint injection was placed inferior and anterior to the acetabulum. Peripheral osteophytes were removed. Next the femur was exposed using the table and femoral elevator for assistance. For this case a capsular release was performed leaving the piriformis and rest of short external rotators intact. The canal was broached up until we obtained excellent axial and rotational stability and the hip was reduced. Fluoro was used to fitness coach limb length, offset, and stem size as well as the calibrations from the robot. Stability was assessed by externally rotating the foot to 90 deg and then extending the hip 30 degrees. There was no subluxation of the femoral head in that position. The hip was dislocated. The stem position and depth was adjusted as needed per the fluoro shot. The neck was planed to the level of the broach using the calcar planar and then the stem removed. The canal was irrigated and the calcar inspected. There was no evidence of fracture and the bone bed was in good condition. The real stem was inserted and then impacted to the prior level of the broach with good solid fit. The calcar was again inspected and in good condition. The real head was impacted onto a clean taper and the hip reduced again. C-arm confirmed reduction and no evidence of complication. The wound was irrigated with dilute betadine followed by saline lavage. Hemostasis was obtained and noted through all layers. The remained of the joint cocktail was injected avoiding posterior by the nerve. We ensured that all the pins were removed from the pelvis including any checkpoints. The capsule was repaired with 0-vlock. The fascia closed with #2 Quill. The subcutaneous tissues closed with 2-0 vlock followed by 3-0 monocryl, dermabond, and prineo The drapes were then taken down and the patient moved to the [facility]. Leg lengths were confirmed to be appropriate and the patient's lower extremities were warm and well perfused with brisk capillary refill and palpable pulses. The patient was then awoken, transferred to the [facility] and taken to the PACU in stable condition. They tolerated the procedure well. The patient's family/caregiviers were made aware of their condition. Final sponge and needle counts were correct x2. Implants: Gianluca trident 56 cup, standard liner, 36+0 head, standard offset 4insignia Anesthesia spinal Implants gianluca Pathology / specimen None Pathology comment: none Estimated Blood Loss 150 Condition Stable Disposition same day Surgeon Wilder Aviles MD Surgical Staff Operation Date: 04/23/25 07:30 Case Staff IMPREGNATOR AND DRIER: Jasmin Gardner RN First Assistant: Marya Evans
--- NOTE | 2025-04-23 10:07 | XR_ITS ---
Examination:Right hip AP, lateral, AP pelvis 3 views Technique: Hip AP lateral, AP pelvis, 3 views Exam date and time:April 23, 2025 1105 hours INDICATIONS: Postop right hip replacement FINDINGS: Total right hip arthroplasty. Satisfactory alignment. 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
--- NOTE | 2025-04-23 10:35 | SUR.PHASEI ---
pt received from OR in recovery bay 1. pt awake and alert, breathing unlabored on oxymask 8l. v/s stable. pt dressing to bilateral hips cdi. report received from Juice DAVEY and Jessica MELÉNDEZ.
--- NOTE | 2025-04-23 12:00 | SUR.PHASEII ---
Addendum entered by Aimee Banks RN 04/23/25 12:20: dressing to left abdomen also cdi. Original Note: report from nurse ivis. vss. breathing even and unlabored.denies pain and nausea. dressing remains cdi to right hip. at bedside.
--- NOTE | 2025-04-23 12:32 | SUR.PHASEII ---
report to nurse langston. pt remains in stable condition. dressings remain intact. vss. breathing even and unlabored. tolerating po fluids.
--- NOTE | 2025-04-23 14:00 | SUR.PHASEII ---
pt able to tolerate oral fluids without difficulty swallowing or nausea/vomiting.
[2025-04-23] MEDS: ONDANSETRON INJ 2 MG/ML INJ 2 ML 4 MG IVP (14:07)
--- NOTE | 2025-04-23 14:20 | SUR.PHASEII ---
pt awake and alert, breathing unlabored on room air. v/s stable. pt dressing to bilateral hips cdi. pt cleared by physical therapist Camden. pt able to ambulate to pacu bathroom. d/c instructions given with Anastasia in room, all questions answered. pt d/c via wheelchair with steady gait.
== END 2025-04-23 14:20 | disposition home or self-care (01) ==
PROVIDERS: Anesthesiology; PCP Family Medicine; Referring Provider Orthopaedic Surgery Adult Reconstructive Orthopaedic Surgery; Visit Provider Orthopaedic Surgery Adult Reconstructive Orthopaedic Surgery
PROC: (CPT 27130; principal; 2025-04-23 07:30)
DX: M87.851 Other osteonecrosis, right femur (principal)
CPT/HCPCS: 27130; 36415; 73502; 76000; 80053; 85025; 85610; 85730; 97162; A4217; A4649; C1713; C1776; J0690; J1885; J2250; J2371; J2405; J2704; J3010; J3490; J7030; J7120; J7999; A4648; A9270

== ENCOUNTER 2025-04-24 04:18 | Emergency (ER) | payer MEDICAID, SELFPAY ==
[2025-04-24 04:18] VITALS: BMI 33.5
[2025-04-24 04:31] VITALS: BP 107/67; PULSE 122; RESP 19; TEMP 38.9; O2SAT 97
--- NOTE | 2025-04-24 04:49 | EDNOTE_ITS ---
ED General RME/HPI General Chief complaint: Fever Stated complaint: FEVER AFTER TOTAL HIP REPLACEMENT Time Seen by Provider: 04/24/25 04:41 Arrival date/time: 04/24/25 04:18 39M with no significant PMH presents to ED with fevers/chills after getting a R hip replacement yesterday with Dr. Aviles. Patient has also had a mild cough and sore throat. Patient has been taking his prescribed ABX. Limitations: no limitations Related Data Home Medications ?Medication ?Instructions ?Recorded ?Confirmed metformin 500 mg tablet 500 mg PO BID 03/14/2504/22 ergocalciferol (vitamin D2) 1,250 1,250 mcg PO QWEEK 0 04/22/25 04/22/25 mcg (50,000 unit) capsule Previous Rx's ?Medication ?Instructions ?Recorded acetaminophen 500 mg tablet 1,000 mg (2 x 500 mg) PO Q 6H PRN 04/23/25 (Acetaminophen Extra Strength) pain #90 tabs aspirin 81 mg tablet,delayed 81 mg PO BID #60 tabs 06/07 release doxycycline hyclate 100 mg tablet 100 mg PO BID #14 ta bs 04/23/25 gabapentin 300 mg capsule 300 mg PO .qhs #30 caps 04/14 oxycodone 5 mg tablet 5 mg PO Q6H PRN pain #28 tab s 04/23/25 sennosides 8.6 mg-docusate sodium 1 tab-cap PO QDAY #3 0 tabs 04/23/25 50 mg tablet (Senna-S) Allergies Allergy/AdvReac Type Severity Reaction Status Date / Time No Known Allergies Allergy Verified 04/23/25 06:59 Pediatric Review of Systems Systems Reviewed Systems Reviewed: All systems reviewed, normal except as documented Review of Systems Constitutional: Reports as per HPI and fever ENT: Reports as per HPI and sore throat Respiratory: Reports as per HPI and cough Past Medical History Past Medical History NEUROLOGIC: Negative Neurological Disorders or Seizures CARDIAC: Negative Cardiac Disorders or Congestive Heart Failure RESPIRATORY: Positive Pneumonia (Covid); Negative Chronic Obstructive Pulmonary Disease (COPD) or Asthma GASTROINTESTINAL: Positive Gastrointestinal Disorders and Obesity; Negative Hepatitis GENITOURINARY: Negative Genitourinary Disorders or Renal Disease MUSCULOSKELETAL: Positive Musculoskeletal Disorders (Avascular necrosis) and Osteoporosis; Negative Arthritis ENT: Positive Glaucoma (right) ENDOCRINE: Positive Endocrine Disorders; Negative Diabetes Mellitus Type 1 or Diabetes Mellitus Type 2 HEMATOLOGIC: Negative Blood Disorders or Sickle Cell Disease OTHER HISTORY: Positive Hospitalization (Covid, surgery), Chicken Pox and Measles; Negative Autoimmune Disease, Shingles, Blood Transfusions, Anesthesia Reactions or Cancer Family History FAMILY HISTORY: Positive Family Surgery; Negative Family Psychiatric Problems, Family Respiratory Disorders, Family Cardiac Disorders, Family Gastrointestinal Problems, Family Cancer or Family Anesthesia Reaction Surgical History SURGICAL: Positive Abdominal Surgery and Arthroscopy (Left meniscectomy) Social History SMOKING STATUS: Never smoker SECOND HAND EXPOSURE: No Ped Exam General Limitations: no limitations General appearance: well-appearing, well-hydrated and well-nourished Neck Neck exam: Present normal inspection, full ROM and trachea midline Chest Chest inspection: Present normal inspection and symmetric chest wall rise Extremities Exam Extremities exam: Present normal capillary refill Expanded Lower Extremity Exam Hip/Pelvis exam: Present other (dressing around R hip) Neurological Exam Neurological exam: Present alert and oriented X3 Skin Skin exam: Present warm, dry, intact and normal color Course Course Course Narrative: 39M with no significant PMH presents to ED with fevers/chills after getting a R hip replacement yesterday with Dr. Aviles. Patient has also had a mild cough and sore throat. Patient has been taking his prescribed ABX. Physical exam reveals bandage around R hip with no gross redness or tenderness. Normal WOB. Patient is febrile, but does not appear toxic. COVID+. It's too early for post-surgical infection, especially given non-toxic appearance, patient's adherence to ABX, and presence of cough and sore throat. Quality Measures none Orders Category Date Time Status Bedside COVID-19 Antigen Test NOW Care 04/24/25 04:48 Active Bedside Influenza A&B Antigen Test NOW Care 04/24/25 04:48 Active Acetaminophen Tab [Tylenol ES Tab] Med 04/24/25 04:46 Discontinued 500 mg PO X1 ONE HYDROcodone*/APAP 5/325 [[place] 5/325] Med 04/24/25 04:46 Discontinued 1 tab PO X1 ONE Naproxen [Naprosyn] Med 04/24/25 04:46 Discontinued 500 mg PO X1 ONE Vital Signs Vital signs: Vital Signs Temperature 102.0 F H 04/24/25 04:31 Pulse Rate 122 H 04/24/25 04:31 Respiratory Rate 19 04/24/25 04:31 Blood Pressure 107/67 04/24/25 04:31 Pulse Oximetry (%) 97 04/24/25 04:31 Oxygen Delivery Method Room Air 04/24/25 04:31 O2 at 97% on RA and WNLs MDM (ped) Patient data External records reviewed:: [facility] previous records Clinical information provided by:: patient Social determinants that could affect healthcare access:: none Patient has the following chronic illnesses:: none How is presenting disease/condition affected by chronic disease/condition?: no chronic disease Evaluation data The following diagnostics were reviewed and interpreted by me:: lab results Lab and/or radiology exams considered but not ordered:: ordered Interpretation Summary: above Medications Medications considered but not ordered:: ordered Medication administrations:: Medication Administration History Discontinued Medications Acetaminophen (Acetaminophen 500 Mg Tablet) 500 mg PO X1 ONE Stop: 04/24/25 04:47 Hydrocodone Bitart/Acetaminophen (Hydrocodone/Apap 5/325 Tablet) 1 tab PO X1 ONE Stop: 04/24/25 04:47 Naproxen (Naproxen 250 Mg Tablet) 500 mg PO X1 ONE Stop: 04/24/25 04:47 above Consultations Consultation(s) initiated? (list below): No Diagnosis Most likely diagnosis given after review of the tests above:: COVID-19 Admission Indicated Admission indicated?: not indicated Explain why admission is indicated or not indicated:: outpatient Admission Request Was there a request for admission?: No Disposition Plan Disposition Plan: Discharge Discharge Attestation Discharge Attestation: The patient and all family members were given an opportunity to ask questions and understood the discharge instructions. Discharge instructions specifically effects, indications for sooner follow up or return to the emergency department, and the expected course of current diagnosis. Patient condition: Stable Discharge Plan Plan Patient Disposition: HOME (Self Care) Discharge Disposition comment: Stable Prescriptions/Referrals Prescriptions/Med Rec: No Action metformin 500 mg tablet 500 mg PO BID Patient Comments: TAKE 1 TABLET BY MOUTH TWICE A DAY ergocalciferol (vitamin D2) 1,250 mcg (50,000 unit) capsule 1,250 mcg PO QWEEK sennosides-docusate sodium [Senna-S] 8.6-50 mg tablet 1 tab-cap PO QDAY Qty: 30 0RF aspirin 81 mg tablet,delayed release (DR/EC) 81 mg PO BID Qty: 60 0RF acetaminophen [Acetaminophen Extra Strength] 500 mg tablet 1,000 mg PO Q6H MDD 1000mg PRN (Reason: pain) Qty: 90 0RF gabapentin 300 mg capsule 300 mg PO .qhs Qty: 30 0RF doxycycline hyclate 100 mg tablet 100 mg PO BID Qty: 14 0RF oxycodone 5 mg tablet 5 mg PO Q6H MDD 20 PRN (Reason: pain) Qty: 28 0RF Rx Instructions: z96.65 Referrals: Temporary Provider,ED [Primary Care Provider, Emergency Medicine] - In 1 week Problem List Clinical Impression: COVID-19 Patient/Caregiver Discharge Instructions Education Materials: COVID-19 Home Care Additional Instructions: Please follow-up with PCP within 24-48 hours and return immediately if symptoms worsen. Ibuprofen/Tylenol can be used simultaneously for greater fever/pain control. Benadryl is good for cough, congestion, and sleep. Keep hydrated. Advance diet as tolerated. Follow-up with Dr. Aviles as scheduled. Print Language: Guamanian Stand Alone Forms: Patient Portal Info Letter EDGARDO/[place]O Supervising Physician EDGARDO/[place] Supervising Physician: Dr. Pierre
[2025-04-24 04:52] VITALS: TEMP 38.9
[2025-04-24] MEDS: NAPROXEN 250 MG TABLET 500 MG PO (04:52)
[2025-04-24] MEDS: ACETAMINOPHEN 500 MG TABLET PO (04:52)
[2025-04-24] MEDS: HYDROcodone/APAP 5/325 TABLET 1 TAB PO (04:52)
== END 2025-04-24 04:57 | disposition home or self-care (01) ==
LOC: SERX 04:52
PROVIDERS: Emergency Provider Emergency Medicine
DX: U07.1 COVID-19 (principal)
CPT/HCPCS: 87400; 87811; 99283; A9270

== ENCOUNTER 2025-05-08 13:45 | Outpatient (AMB) | payer MEDICAID, SELFPAY ==
--- NOTE | 2025-05-08 13:59 | ORTHONT_ITS ---
Vital signs 05/08/25 14:00 Height 1.7 m Height Method Measured Weight 95.736 kg Weight Measurement Method Standing Scale BMI 33.1 BP 132/88 H Blood Pressure Source Automatic Cuff Blood Pressure Location Left Upper Arm Position Sitting Respiration 18 Pulse 91 Pulse Source Monitor Temp 97.5 F Temp Source Temporal Artery Scan Pulse Oximetry (%) 96 Oxygen Delivery Method Room Air Med/Allergies Allergies & Medications Allergies No Known Allergies Allergy (Verified 05/08/25 14:01) Medication Reconciliation metformin 500 mg tablet 500 mg PO BID 03/14/25 [History Confirmed 05/08/25] ergocalciferol (vitamin D2) 1,250 mcg (50,000 unit) capsule 1,250 mcg PO QWEEK 04/22/25 [History Confirmed 05/08/25] acetaminophen 500 mg tablet (Acetaminophen Extra Strength) 1,000 mg (2 x 500 mg) PO Q6H PRN pain #90 tabs 04/23/25 [Rx Confirmed 05/08/25] aspirin 81 mg tablet,delayed release 81 mg PO BID #60 tabs 04/23/25 [Rx Confirmed 05/08/25] doxycycline hyclate 100 mg tablet 100 mg PO BID #14 tabs 04/23/25 [Rx Confirmed 05/08/25] gabapentin 300 mg capsule 300 mg PO .qhs #30 caps 04/23/25 [Rx Confirmed 05/08/25] oxycodone 5 mg tablet 5 mg PO Q6H PRN pain #28 tabs 04/23/25 [Rx Confirmed 05/08/25] sennosides 8.6 mg-docusate sodium 50 mg tablet (Senna-S) 1 tab-cap PO QDAY #30 tabs 04/23/25 [Rx Confirmed 05/08/25] Assessment and Plan Problem List (1) Avascular necrosis of bone of right hip: Status: Acute Plan: ASSESSMENT AND PLAN 1. Post-operative status following right total hip replacement: Her recovery is progressing well, as evidenced by her ability to ambulate without the aid of a walker. A referral for physical therapy will be made to further aid in her recovery. She was advised to remove the tape from her knee during her next shower. No refills on medication are needed at this time as she still has medication left. Encouragement was given that she will likely feel much better by the next visit. (2) Arthritis of left knee: Status: Acute Plan: The patient also reports significant left knee pain. It is unclear whether the pain is from his hip or his knee. We thus we will do a cortisone injection of his left knee today for both diagnostic and therapeutic purposes Recommend knee cortisone injection as patient would like to proceed with conservative treatment at this time. The risks and benefits of the procedure were reviewed with the patient and patient gave verbal consent to continue with the procedure. Procedure: performed by Dr. Aviles Using sterile technique the left knee was thoroughly prepped with alcohol, and approximately 1 cc of Depo-Medrol 80mg/mL and 4 cc of 0.2% ropivacaine was injected without resistance into the medial tibial femoral joint space. The patient tolerated the procedure. Office Procedures GNS Level of Care Nursing/Assessment Patient Status: Established Patient Nursing Assessment/Reassesment: Medication Reconciliation, Update PMH in EMR and Vital Signs Coordination of Care: Complex Care and Chronic Disease 1-5, Education Complex Pt/Fam, Consent,records obtained, informed consent, Results/Orders obtained and Staff clarify orders Special Needs: Language special needs Established Patient Charge Established Patient Point Assignment: 95 Established Patient Point Charge: EP Level 3 (80-115) Surgical Proc/IM SQ injection Minor Surgical Procedure: Yes (KNEE INJECTION) Medication Given Medication Given Medication Given: Yes Documented Dose Given: 1 Route: Infiitration Medication Given Medication Given Medication Given: Yes Documented Dose Given: 4 Route: Infiitration Office Meds methylprednisolone acetate 80 mg/mL suspension for injection Performing Provider: Wilder Aviles MD Performing Location: [facility] Administered by: Wilder Aviles MD on 05/08/25 14:10 Dose Route Admin Location Dispensed Lot Number Expiration Date Pack age [facility] Dental Chair Assembler 80 mg intra-articular KNEE 1 mL [id number] 07/13/26 [address]-8 [id number] [employer] ropivacaine (PF) 2 mg/mL (0.2 %) injection solution Performing Provider: Wilder Aviles MD Performing Location: [facility] Administered by: Wilder Aviles MD on 05/08/25 14:10 Dose Route Admin Location Dispensed Lot Number Expiration Date Pack age [facility] Dental Chair Assembler 20 mL Infiltration KNEE 20 mL [id number] 09/13/27 63832-663-01 [id number] [facility] Intake Visit Data Collection New Patient or Established: Established Patient (seen at [facility] within 3 years) Reason for Visit:: RIGHT TKA 2 WEEK POST OP Seen by Clinical Staff ONLY (RN/MA): No Electrical Lineman Required: Yes PCP or OBGYN visit in last 3 months: Yes Hx Now: No Do You Feel Safe at Home: Yes Authorities Contacted: N/A Questionairres Past Medical History Past Medical History Have you ever been diagnosed with any of the following: Neurological Problems Seizures: No Cardiology Problems Congestive Heart Failure: No Respiratory Problems Chronic Obstructive Pulmonary Disease (COPD): No Asthma: No Pneumonia: Yes (Covid) Stomache/Intestinal Problems Hepatitis: No Obesity: Yes Genital/Urinary Problems Renal Disease: No Musculoskeletal Problems Arthritis: No Osteoporosis: Yes Head,Eye,Nose,Throat Problems Glaucoma: Yes (right) Endocrine Problems Diabetes Mellitus Type 1: No Diabetes Mellitus Type 2: No Blood Problems Sickle Cell Disease: No Other Problems Hospitalization: Yes (Covid, surgery) Shingles: No Blood Transfusions: No Blood Transfusion Reaction: No Anesthesia Reactions: No Chicken Pox: Yes Measles: Yes Cancer: No Subjective Visit Visit for: follow up visit and hip Immunization / Flu Flu Vaccine in the Last 12 Months: No Flu Vaccine Exclusion Criteria: No Exclusion Criteria History of Present Illness Chief complaint: 2 WEEK POST OP RIGHT TKA HISTORY OF PRESENT ILLNESS IWilder, have obtained verbal consent from the patient, to be recorded during this encounter which may include, but not limited to, medical history, examination, treatment plans, and relevant health information.? Patient was informed that recording will be read and reviewed by myself before inclusion in the medical chart. The patient is a 61-year-old female who is 2 weeks status post right total knee replacement. She reports experiencing pain in her knee, which she rates as a 5 on a scale of 0 to 10. She also notes the presence of swelling in the area. She has not yet completed her current medication regimen. Personal History Occupation: [employer] PMH: BMI and other (specify) (COVID, PNEUMONIA) BMI Counceling provided: Yes Pain Pain level (0-10): 2 Pain duration: ALL DAY Pain location: groin Pain quality: sharp, dull and aching Pain timing: night, increases with activity and stairs Associated signs & symptoms: numbness and stiffness Ambulatory data Ambulatory device: none Treatments Improvement with previous injections: No Improvement with PT: No Improvement with NSAIDS: no Review of Systems Review of Systems: All systems negative unless otherwise noted in HPI.
[2025-05-08 14:00] VITALS: BP 132/88; PULSE 91; RESP 18; TEMP 36.4; O2SAT 96; BMI 33.1
== END 2025-05-08 14:12 | disposition home or self-care (01) ==
LOC: HODSRG 13:45
PROVIDERS: Supervising Provider Orthopaedic Surgery Adult Reconstructive Orthopaedic Surgery; Visit Provider Orthopaedic Surgery Adult Reconstructive Orthopaedic Surgery
DX: M17.12 Unilateral primary osteoarthritis, left knee (principal); M25.562 Pain in left knee; M87.88 Other osteonecrosis, other site; Z96.651 Presence of right artificial knee joint; E66.9 Obesity, unspecified; Z71.3 Dietary counseling and surveillance; Z68.33 Body mass index [BMI] 33.0-33.9, adult; Z86.16 Personal history of COVID-19
CPT/HCPCS: 20610; 99213; J1010; J2795; G0463

== ENCOUNTER 2025-06-10 09:48 | Outpatient (AMB) | payer MEDICAID, SELFPAY ==
--- NOTE | 2025-06-10 09:58 | PD.ORTHCLVIS ---
Vital signs 06/10/25 09:59 Height 1.7 m Height Method Stated Weight 97.154 kg Weight Measurement Method Standing Scale BMI 33.6 BP 99/77 Blood Pressure Source Automatic Cuff Blood Pressure Location Left Upper Arm Position Sitting Respiration 20 Pulse 106 H Pulse Source Monitor Temp 97.8 F Temp Source Temporal Artery Scan Pulse Oximetry (%) 96 Oxygen Delivery Method Room Air Med/Allergies Allergies & Medications Allergies No Known Allergies Allergy (Verified 06/10/25 10:02) Medication Reconciliation metformin 500 mg tablet 500 mg PO BID 03/14/25 [History Confirmed 06/10/25] ergocalciferol (vitamin D2) 1,250 mcg (50,000 unit) capsule 1,250 mcg PO QWEEK 04/22/25 [History Confirmed 06/10/25] acetaminophen 500 mg tablet (Acetaminophen Extra Strength) 1,000 mg (2 x 500 mg) PO Q6H PRN pain #90 tabs 04/23/25 [Rx Confirmed 06/10/25] aspirin 81 mg tablet,delayed release 81 mg PO BID #60 tabs 04/23/25 [Rx Confirmed 06/10/25] doxycycline hyclate 100 mg tablet 100 mg PO BID #14 tabs 04/23/25 [Rx Confirmed 06/10/25] gabapentin 300 mg capsule 300 mg PO .qhs #30 caps 04/23/25 [Rx Confirmed 06/10/25] oxycodone 5 mg tablet 5 mg PO Q6H PRN pain #28 tabs 04/23/25 [Rx Confirmed 06/10/25] sennosides 8.6 mg-docusate sodium 50 mg tablet (Senna-S) 1 tab-cap PO QDAY #30 tabs 04/23/25 [Rx Confirmed 06/10/25] Exam Exam Patient is in no acute distress and is cooperative with the examination today. Breathing is nonlabored. In no respiratory distress. Patient has no paraspinal tenderness. Spinal deformity cannot be appreciated. The gait of the patient is nonantalgic Bilateral extremities were evaluated and demonstrates sensation intact to light touch. Palpable pedal pulses are present. No significant edema is present. Bilateral knees were examined and the patient has full strength and range of motion.. The left hip was examined. Patient was able to flex to 90 degrees, adduct to 30 degrees, abduct to 40 degrees, internally rotate to 20 degrees, and externally rotate to 20 degrees. Patient has a negative logroll. Stinchfield is Positive. The patient is nontender diffusely to touch. The right hip was examined. Patient was able to flex to 90 degrees, adduct to 30 degrees, abduct to 40 degrees, internally rotate to 10 degrees, and externally rotate to 20 degrees. Patient has a Positive logroll. Skin is clean dry and intact Assessment and Plan Problem List (1) Avascular necrosis of bone of right hip: Status: Acute Plan: Patient is doing well status post right total hip replacement for avascular porosis. He also has significant AVN of his left hip. He would like to hold off on surgery of his left hip for now We will see him back in approximately 2 months. Will get x-rays of the bilateral hips (2) Arthritis of left knee: Status: Acute Plan: . Office Procedures GNS Level of Care Nursing/Assessment Patient Status: Established Patient Nursing Assessment/Reassesment: Medication Reconciliation, Update PMH in EMR and Vital Signs Coordination of Care: Complex Care and Chronic Disease 1-5, Education Complex Pt/Fam, Consent,records obtained, informed consent, Results/Orders obtained and Staff clarify orders Special Needs: Language special needs Established Patient Charge Established Patient Point Assignment: 95 Established Patient Point Charge: EP Level 3 (80-115) MA Intake Visit Data Collection New Patient or Established: Established Patient (seen at [facility] within 3 years) Reason for Visit:: 4 WK R JOSH FU Seen by Clinical Staff ONLY (RN/MA): No 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 PCP or OBGYN visit in last 3 months: Yes Hx Now: No Do You Feel Safe at Home: Yes Authorities Contacted: N/A Questionairres Past Medical History Past Medical History Have you ever been diagnosed with any of the following: Neurological Problems Seizures: No Cardiology Problems Congestive Heart Failure: No Respiratory Problems Chronic Obstructive Pulmonary Disease (COPD): No Asthma: No Pneumonia: Yes (Covid) Stomache/Intestinal Problems Hepatitis: No Obesity: Yes Genital/Urinary Problems Renal Disease: No Musculoskeletal Problems Arthritis: No Osteoporosis: Yes Head,Eye,Nose,Throat Problems Glaucoma: Yes (right) Endocrine Problems Diabetes Mellitus Type 1: No Diabetes Mellitus Type 2: No Blood Problems Sickle Cell Disease: No Other Problems Hospitalization: Yes (Covid, surgery) Shingles: No Blood Transfusions: No Blood Transfusion Reaction: No Anesthesia Reactions: No Chicken Pox: Yes Measles: Yes Cancer: No Subjective Visit Visit for: follow up visit and hip (RIGHT) Immunization / Flu Flu Vaccine in the Last 12 Months: No Flu Vaccine Exclusion Criteria: No Exclusion Criteria History of Present Illness Chief complaint: 4 WK R JOSH FU HISTORY OF PRESENT ILLNESS I, Wilder Aviles, have obtained verbal consent from the patient, to be recorded during this encounter which may include, but not limited to, medical history, examination, treatment plans, and relevant health information.? Patient was informed that recording will be read and reviewed by myself before inclusion in the medical chart. The patient is a 61-year-old female who is 6 weeks status post right total hip replacement. He is doing well and has minimal pain in his right hip. He is doing well and is working with pt Personal History Occupation: [employer] PMH: BMI and other (specify) (COVID, PNEUMONIA) BMI Counceling provided: Yes Pain Pain level (0-10): 2 Pain duration: ALL DAY Pain location: groin Pain quality: sharp, dull and aching Pain timing: night, increases with activity and stairs Associated signs & symptoms: numbness and stiffness Ambulatory data Ambulatory device: walker Treatments Improvement with previous injections: No Improvement with PT: No Improvement with NSAIDS: no Review of Systems Review of Systems: All systems negative unless otherwise noted in HPI.
[2025-06-10 09:59] VITALS: BP 99/77; PULSE 106; RESP 20; TEMP 36.6; O2SAT 96; BMI 33.6
== END 2025-06-10 10:18 | disposition home or self-care (01) ==
LOC: HODSRG 09:48
PROVIDERS: Supervising Provider Orthopaedic Surgery Adult Reconstructive Orthopaedic Surgery; Visit Provider Orthopaedic Surgery Adult Reconstructive Orthopaedic Surgery
DX: Z47.1 Aftercare following joint replacement surgery (principal); Z96.641 Presence of right artificial hip joint; M25.551 Pain in right hip; M17.12 Unilateral primary osteoarthritis, left knee; E66.9 Obesity, unspecified; Z68.33 Body mass index [BMI] 33.0-33.9, adult
CPT/HCPCS: 99213; G0463

== ENCOUNTER 2025-06-11 11:30 | Outpatient (RCR) | payer MEDICAID, SELFPAY ==
--- NOTE | 2025-05-21 14:17 | PT.OIERPT ---
PT OP Initial Eval Patient Information Outpatient Physical Therapy Treatment Date: 05/21/25 Visit Reasons: total hip surgery Medical Diagnosis: Right Hip OA Treatment Dx #1: Right Hip Mobility Deficits Treatment Dx #2: Right Hip Weakness Start of Care: 05/21/25 Date of Onset: 1 month ago Smoking Status Smoking Status: Never smoker Initial Assessment Subjective: Pt is a 39 y/o male s/p right JOSH ~ 1 month ago due to hip OA. Pt still has pain (7/10) with activities. Pt has limitation with standing, chores, self care, balance, cooking, cleaning, walking, and performing recreational activities. Objective: Right Hip AROM Flexion: 89 deg Abduction: 36 deg ER and IR: NT Extension: 10 deg Right Hip MMTs: grossly 3-/5 Gait Observation: step to with walker Active SLR: 30 deg Assessment: Pt demonstrate right hip mobility and strength deficits s/p JOSH leading to difficulty with ADLs. Pt will benefit from physical therapy to increase ROM, strength, and work on gait. Short Term and Gameplay Engineer Goals 1) Increase right hip AROM WNL in 12 wks to be able to perform chores 2) Decrease hip pain to 2/10 in 12 wks to be able to stand more than 30 mins 3) Increase right hip MMTs grossly to 4/5 in 12 wks to be able to perform stairs and steps 4) Increase SLS to 20 sec in 12 wks to be able to perform self care activities 5) Indep with HEP Treatment Plan 1) Manual Therapy 2) Therapeutic Activities 3) Therapeutic Exercises 4) Modalities (ice, heat) 5) Balance Training 6) Gait Training Frequency and Duration: 2 x wk for 12 wks Certification Dates: 05/21/25 to 08/21/25 Procedure Charges OP PT Eval Mod Complex 30 minutes: Yes
--- NOTE | 2025-05-28 14:49 | PT.ODAYNRPT ---
PT Outpatient Daily Note OP Daily Note Outpatient Physical Therapy Treatment Date: 05/28/25 Visit Reasons: total hip surgery Subjective: Pt reports hip is a little stiff and painful. Objective: Please see flow sheet for ther ex list. Assessment: Pt tolerated interventions well, no complaints. Plan: Assess response to treatment. Length of Time (minutes) of Treatment: 30 Minutes Procedure Charges Therapeutic Exercise 30 minutes: Yes
--- NOTE | 2025-05-30 14:56 | PT.ODAYNRPT ---
PT Outpatient Daily Note OP Daily Note Outpatient Physical Therapy Treatment Date: 05/30/25 Visit Reasons: total hip surgery Subjective: Pt's hip feels much better. Pt mentioned he is pending knee surgery in a few months. Objective: Please see flow chart for list of ther ex performed Assessment: cues given to correct usage of walker. Pt cues to push vs to apple picker walker with ambulation. Pt continues to improve hip AROM in all plane with less pain. Added sci fit today with good tolerance and minimal pain reported Plan: Continue with PT Length of Time (minutes) of Treatment: 30 Minutes Procedure Charges Therapeutic Exercise 30 minutes: Yes
--- NOTE | 2025-06-02 12:56 | PT.ODAYNRPT ---
PT Outpatient Daily Note OP Daily Note Outpatient Physical Therapy Treatment Date: 06/02/25 Visit Reasons: total hip surgery Subjective: Pt's hip feels good. Pt does not have any concerns. Objective: Please see flow chart for list of ther ex performed Assessment: practicing GT in PB transitioning patient to cane. Pt still exhibit antalgic gait and decrease hip stability with CENTERLESS GRINDER on PB Plan: Continue with PT Length of Time (minutes) of Treatment: 30 Minutes Procedure Charges Therapeutic Exercise 30 minutes: Yes
--- NOTE | 2025-06-04 13:11 | PTNOTE_ITS ---
PT Outpatient Daily Note OP Daily Note Outpatient Physical Therapy Treatment Date: 06/04/25 Visit Reasons: total hip surgery Subjective: Pt reports hip is doing ok, would like for R LE to be stronger. Objective: Please see flow sheet for the ex list. Assessment: Pt instructed on SLB requires LANDFILL GAS COLLECTION SYSTEM OPERATOR to maintain balance, not able to hold balance on SL without UE assist. Plan: Continue with poC. Length of Time (minutes) of Treatment: 30 Minutes Procedure Charges Therapeutic Exercise 30 minutes: Yes
--- NOTE | 2025-06-09 12:55 | PT.ODAYNRPT ---
PT Outpatient Daily Note OP Daily Note Outpatient Physical Therapy Treatment Date: 06/09/25 Visit Reasons: total hip surgery Subjective: Pt continues to limp due to pain in the right hip. Objective: Please see flow chart for list of ther ex performed Assessment: patient exhibit trendelenbug gait to due to glute weakness and pain in the right hip Plan: Continue with PT Length of Time (minutes) of Treatment: 30 Minutes Procedure Charges Therapeutic Exercise 30 minutes: Yes
--- NOTE | 2025-06-11 12:48 | PT.ODAYNRPT ---
PT Outpatient Daily Note OP Daily Note Outpatient Physical Therapy Treatment Date: 06/11/25 Visit Reasons: total hip surgery Subjective: Pt's right hip feels good. Pt mentioned left hip is causing limitation and surgeon plans on a replacement in 3-4 months. Objective: Please see flow chart for list of ther ex performed Assessment: practice GT with cane; Pt's sequence off and demonstrate slight unsteady with the cane. Pt continue GT in PB with TITUS with better form. Plan: Continue with PT Length of Time (minutes) of Treatment: 30 Minutes Procedure Charges Therapeutic Exercise 30 minutes: Yes
== END 2025-06-13 23:59 | disposition home or self-care (01) ==
LOC: CPTX 11:30
PROVIDERS: PCP Orthopaedic Surgery Adult Reconstructive Orthopaedic Surgery; Referring Provider Orthopaedic Surgery Adult Reconstructive Orthopaedic Surgery; Visit Provider Orthopaedic Surgery Adult Reconstructive Orthopaedic Surgery
DX: M25.551 Pain in right hip (principal); R53.1 Weakness; R26.2 Difficulty in walking, not elsewhere classified; R26.89 Other abnormalities of gait and mobility; Z96.641 Presence of right artificial hip joint
CPT/HCPCS: 97110; 97162

== ENCOUNTER 2025-07-09 11:00 | Outpatient (RCR) | payer MEDICAID, SELFPAY ==
--- NOTE | 2025-06-16 12:06 | PT.ODAYNRPT ---
PT Outpatient Daily Note OP Daily Note Outpatient Physical Therapy Treatment Date: 06/16/25 Visit Reasons: right hip surgery Subjective: Pt's hip feels much better and less pain reported. Pt wants to try step up exercise on the higher step. Objective: Please see flow chart for list of ther ex performed Assessment: able to complete step up exercises on 6 step with good form. Pt was fatigue post PT session due to added exercises and increase reps Plan: Continue with PT Length of Time (minutes) of Treatment: 30 Minutes Procedure Charges Therapeutic Exercise 30 minutes: Yes
--- NOTE | 2025-06-19 12:01 | PT.ODAYNRPT ---
PT Outpatient Daily Note OP Daily Note Outpatient Physical Therapy Treatment Date: 06/19/25 Visit Reasons: right hip surgery Subjective: Pt reports hip is doing better. Objective: Please see flow sheet for ther ex list. Assessment: Continue focus on strengthening and mobility of R hip. Plan: Continue with pOC. Length of Time (minutes) of Treatment: 30 Minutes Procedure Charges Therapeutic Exercise 30 minutes: Yes
--- NOTE | 2025-06-26 11:38 | PT.ODAYNRPT ---
PT Outpatient Daily Note OP Daily Note Outpatient Physical Therapy Treatment Date: 06/26/25 Visit Reasons: right hip surgery Subjective: Pt's hip feels better. Pt mentioned he's walking more and longer with less pain. Objective: Please see flow chart for list of ther ex performed Assessment: progressing with closed chain exercises and tolerating increase resistance exercises with minimal pain reported Plan: Continue with PT Length of Time (minutes) of Treatment: 30 Minutes Procedure Charges Therapeutic Exercise 30 minutes: Yes
--- NOTE | 2025-07-02 12:01 | PT.ODAYNRPT ---
PT Outpatient Daily Note OP Daily Note Outpatient Physical Therapy Treatment Date: 07/02/25 Visit Reasons: right hip surgery Subjective: Pt reports R hip is doing ok,. Objective: Please see flow sheet for ther ex list. Assessment: Focus on restoring strength and functional mobility of R hip within post op protocols. Plan: Continue with poC. Length of Time (minutes) of Treatment: 30 Minutes Procedure Charges Therapeutic Exercise 30 minutes: Yes
--- NOTE | 2025-07-07 11:34 | PT.ODAYNRPT ---
PT Outpatient Daily Note OP Daily Note Outpatient Physical Therapy Treatment Date: 07/07/25 Visit Reasons: right hip surgery Subjective: Pt's hip feels much better. Pt does not have any concerns to report. Objective: Please see flow chart for list of ther ex performed Assessment: tolerate exercises with minimal pain; slight LOB with side step on airex Plan: Continue with PT Length of Time (minutes) of Treatment: 30 Minutes Procedure Charges Therapeutic Exercise 30 minutes: Yes
--- NOTE | 2025-07-09 11:57 | PT.ODAYNRPT ---
PT Outpatient Daily Note OP Daily Note Outpatient Physical Therapy Treatment Date: 07/09/25 Visit Reasons: right hip surgery Subjective: Pt reports hip is doing ok but feels stiff and painful. Objective: Please see flow sheet for ther ex list. Assessment: Pt instructed on updated HEP. Plan: Waiting on additional auth to continue with PT services. Length of Time (minutes) of Treatment: 30 Minutes Procedure Charges Therapeutic Exercise 30 minutes: Yes
== END 2025-07-13 23:59 | disposition home or self-care (01) ==
LOC: CPTX 11:00
PROVIDERS: PCP Orthopaedic Surgery Adult Reconstructive Orthopaedic Surgery; Referring Provider Orthopaedic Surgery Adult Reconstructive Orthopaedic Surgery; Visit Provider Orthopaedic Surgery Adult Reconstructive Orthopaedic Surgery
DX: M25.551 Pain in right hip (principal); R53.1 Weakness; R26.2 Difficulty in walking, not elsewhere classified; R26.89 Other abnormalities of gait and mobility; Z96.641 Presence of right artificial hip joint
CPT/HCPCS: 97110

== ENCOUNTER 2025-08-12 09:50 | Outpatient (AMB) | payer MEDICAID, SELFPAY ==
--- NOTE | 2025-08-12 10:12 | PD.ORTHCLVIS ---
Vital signs 08/12/25 10:13 Height 1.7 m Height Method Stated Weight 100.953 kg Weight Measurement Method Standing Scale BMI 34.9 BP 130/79 Blood Pressure Source Automatic Cuff Blood Pressure Location Left Upper Arm Position Sitting Respiration 16 Pulse 117 H Pulse Source Monitor Temp 97.6 F Temp Source Temporal Artery Scan Pulse Oximetry (%) 94 L Oxygen Delivery Method Room Air Med/Allergies Allergies & Medications Allergies No Known Allergies Allergy (Verified 08/12/25 10:13) Medication Reconciliation metformin 500 mg tablet 500 mg PO BID 03/14/25 [History Confirmed 08/12/25] ergocalciferol (vitamin D2) 1,250 mcg (50,000 unit) capsule 1,250 mcg PO QWEEK 04/22/25 [History Confirmed 08/12/25] acetaminophen 500 mg tablet (Acetaminophen Extra Strength) 1,000 mg (2 x 500 mg) PO Q6H PRN pain #90 tabs 04/23/25 [Rx Confirmed 08/12/25] aspirin 81 mg tablet,delayed release 81 mg PO BID #60 tabs 04/23/25 [Rx Confirmed 08/12/25] doxycycline hyclate 100 mg tablet 100 mg PO BID #14 tabs 04/23/25 [Rx Confirmed 08/12/25] gabapentin 300 mg capsule 300 mg PO .qhs #30 caps 04/23/25 [Rx Confirmed 08/12/25] oxycodone 5 mg tablet 5 mg PO Q6H PRN pain #28 tabs 04/23/25 [Rx Confirmed 08/12/25] sennosides 8.6 mg-docusate sodium 50 mg tablet (Senna-S) 1 tab-cap PO QDAY #30 tabs 04/23/25 [Rx Confirmed 08/12/25] Exam Exam Patient is in no acute distress and is cooperative with the examination today. Breathing is nonlabored. In no respiratory distress. Patient has no paraspinal tenderness. Spinal deformity cannot be appreciated. The gait of the patient is nonantalgic Bilateral extremities were evaluated and demonstrates sensation intact to light touch. Palpable pedal pulses are present. No significant edema is present. Bilateral knees were examined and the patient has full strength and range of motion.. The left hip was examined. Patient was able to flex to 90 degrees, adduct to 30 degrees, abduct to 40 degrees, internally rotate to 20 degrees, and externally rotate to 20 degrees. Patient has a negative logroll. Stinchfield is Positive. The patient is nontender diffusely to touch. The right hip was examined. Patient was able to flex to 90 degrees, adduct to 30 degrees, abduct to 40 degrees, internally rotate to 10 degrees, and externally rotate to 20 degrees. Patient has a Positive logroll. Skin is clean dry and intact Assessment and Plan Problem List (1) Avascular necrosis of bone of right hip: Status: Acute Plan: Patient is doing well status post right total hip replacement for avn. He also has significant AVN of his left hip. He would like to hold off on surgery of his left hip for now We will see him back in approximately 2 months. Will get x-rays of the bilateral hips (2) Arthritis of left knee: Status: Acute Plan: . Office Procedures GNS Level of Care Nursing/Assessment Patient Status: Established Patient Nursing Assessment/Reassesment: Medication Reconciliation, Update PMH in EMR and Vital Signs Coordination of Care: Complex Care and Chronic Disease 1-5, Education Complex Pt/Fam, Consent,records obtained, informed consent, Results/Orders obtained and Staff clarify orders Established Patient Charge Established Patient Point Assignment: 95 Established Patient Point Charge: EP Level 3 (80-115) MA Intake Visit Data Collection New Patient or Established: Established Patient (seen at [facility] within 3 years) Reason for Visit:: 2MTH FU Seen by Clinical Staff ONLY (RN/MA): No 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 PCP or OBGYN visit in last 3 months: Yes Hx Now: No Do You Feel Safe at Home: Yes Authorities Contacted: N/A Questionairres Past Medical History Past Medical History Have you ever been diagnosed with any of the following: Neurological Problems Seizures: No Cardiology Problems Congestive Heart Failure: No Respiratory Problems Chronic Obstructive Pulmonary Disease (COPD): No Asthma: No Pneumonia: Yes (Covid) Stomache/Intestinal Problems Hepatitis: No Obesity: Yes Genital/Urinary Problems Renal Disease: No Musculoskeletal Problems Arthritis: No Osteoporosis: Yes Head,Eye,Nose,Throat Problems Glaucoma: Yes (right) Endocrine Problems Diabetes Mellitus Type 1: No Diabetes Mellitus Type 2: No Blood Problems Sickle Cell Disease: No Other Problems Hospitalization: Yes (Covid, surgery) Shingles: No Blood Transfusions: No Blood Transfusion Reaction: No Anesthesia Reactions: No Chicken Pox: Yes Measles: Yes Cancer: No Subjective Visit Visit for: follow up visit and hip (RIGHT) Immunization / Flu Flu Vaccine in the Last 12 Months: No Flu Vaccine Exclusion Criteria: No Exclusion Criteria History of Present Illness Chief complaint: 4 WK R JOSH FU HISTORY OF PRESENT ILLNESS I, Wilder Aviles, have obtained verbal consent from the patient, to be recorded during this encounter which may include, but not limited to, medical history, examination, treatment plans, and relevant health information.? Patient was informed that recording will be read and reviewed by myself before inclusion in the medical chart. The patient is a 61-year-old female who is 12 weeks status post right total hip replacement. He is doing well and has minimal pain in his right hip. He reports his significant hip pain on the left. Personal History Occupation: [employer] PMH: BMI and other (specify) (COVID, PNEUMONIA) BMI Counceling provided: Yes Pain Pain level (0-10): 2 Pain duration: ALL DAY Pain location: groin Pain quality: sharp, dull and aching Pain timing: night, increases with activity and stairs Associated signs & symptoms: numbness and stiffness Ambulatory data Ambulatory device: walker Treatments Improvement with previous injections: No Improvement with PT: No Improvement with NSAIDS: no Review of Systems Review of Systems: All systems negative unless otherwise noted in HPI.
[2025-08-12 10:13] VITALS: BP 130/79; PULSE 117; RESP 16; TEMP 36.4; O2SAT 94; BMI 34.9
--- NOTE | 2025-08-12 10:35 | XR_ITS ---
Examination: Bilateral hips, AP pelvis, 5 views Technique: AP, lateral views both hips, AP pelvis, 5 views Exam date and time: August 12, 2025, 1055 hours, comparison 04/23/2025 INDICATIONS: Hip pain beginning 2 years ago. FINDINGS: Severe left hip osteoarthritis Flattening and subarticular cyst formation involving the left femoral head Severe osteopenia Total right hip arthroplasty with satisfactory alignment Bones of the pelvis intact IMPRESSION: Severe left hip osteoarthritis
== END 2025-08-12 10:36 | disposition home or self-care (01) ==
LOC: HODSRG 09:50
PROVIDERS: Supervising Provider Orthopaedic Surgery Adult Reconstructive Orthopaedic Surgery; Visit Provider Orthopaedic Surgery Adult Reconstructive Orthopaedic Surgery
DX: Z47.1 Aftercare following joint replacement surgery (principal); Z96.641 Presence of right artificial hip joint; M87.852 Other osteonecrosis, left femur; M16.12 Unilateral primary osteoarthritis, left hip; M17.12 Unilateral primary osteoarthritis, left knee; M25.552 Pain in left hip; M25.551 Pain in right hip; E66.9 Obesity, unspecified; Z68.34 Body mass index [BMI] 34.0-34.9, adult
CPT/HCPCS: 73522; 99213; G0463